=== PATIENT | male | born 1950 | race Caucasian/White ===

== ENCOUNTER 2023-08-04 07:43 | Outpatient (CLI) | payer MEDICARE, OTHER ==
[2023-08-04] MEDS ORDERED: Magnevist 469MG/ML 20 ML VIAL ONE (09:54)
== END 2023-08-04 07:44 | disposition home or self-care (01) ==
LOC: CSHMRI 07:43
PROVIDERS: ATTEND Internal Medicine
DX: R16.0 Hepatomegaly, not elsewhere classified (principal); Z95.828 Presence of other vascular implants and grafts
CPT/HCPCS: 74183

== ENCOUNTER 2023-08-14 09:32 | Outpatient (CLI) | payer MEDICARE, OTHER ==
[2023-08-14] MEDS ORDERED: Iopamidol 300 61% 100 ML VIAL FS ONE (10:34)
== END 2023-08-14 09:33 | disposition home or self-care (01) ==
LOC: CSHCT 09:32
PROVIDERS: ATTEND Internal Medicine
DX: C22.0 Liver cell carcinoma (principal); R16.0 Hepatomegaly, not elsewhere classified; I86.8 Varicose veins of other specified sites; N28.1 Cyst of kidney, acquired; N20.0 Calculus of kidney
CPT/HCPCS: 71260; 82565; Q9967